=== PATIENT | male | born 2000 | race Two or more races ===

== ENCOUNTER 2024-04-09 12:00 | Emergency (ER) | payer SELFPAY ==
[~2024-04-09] VITALS: Ht 188 cm; Wt 91.6 kg
[2024-04-09 12:13] VITALS: TEMP 98.6
[2024-04-09] MEDS ORDERED: MORPHINE SULFATE INJ 2 MG/ML DISP.SYRIN IM ONE (12:30)
[2024-04-09] MEDS ORDERED: LIDOCAINE 5% (PATCH) 1 EA PATCH TP ONE (12:38)
[2024-04-09] MEDS ORDERED: KETOROLAC TROMETHAMINE 15 MG/ML VIAL ONE (12:38)
[2024-04-09] MEDS ORDERED: HYDROCODONE/APAP 5/325MG TABLET ONE (12:39)
[2024-04-09] MEDS ORDERED: CYCLOBENZAPRINE 10 MG TABLET ONE (12:39)
[2024-04-09] MEDS: LIDOCAINE 5% (PATCH) 1 EA PATCH TP STA (12:44)
[2024-04-09] MEDS: CYCLOBENZAPRINE 10 MG TABLET PO ONE (12:45)
[2024-04-09] MEDS: HYDROCODONE/APAP 5/325MG TABLET PO ONE (12:45)
[2024-04-09] MEDS: KETOROLAC TROMETHAMINE 15 MG/ML VIAL IM ONE (12:46)
[2024-04-09] MEDS ORDERED: IBUP-1955 PO (13:48)
[2024-04-09] MEDS ORDERED: CYCL5TAB PO (13:48)
[2024-04-09] MEDS ORDERED: LIDO30AD10 TP (13:48)
[2024-04-09 14:04] VITALS: BP 117/65; O2SAT 98
== END 2024-04-09 14:02 | disposition home or self-care (01) ==
LOC: ER 12:05
DX: M54.6 Pain in thoracic spine (principal); M62.830 Muscle spasm of back; Z88.5 Allergy status to narcotic agent; Z87.39 Personal history of other diseases of the musculoskeletal system and connective tissue; Z60.2 Problems related to living alone
CPT/HCPCS: 99284; 71045; 96372; J1885